=== PATIENT | female | born 1985 | race Caucasian/White ===

== ENCOUNTER → 2023-06-20 06:41 | Outpatient (REF) | payer BC, SELFPAY | LOC: MRI 3T 06:41 | PROVIDERS: ATTENDING PHYSICIAN Physician Assistant Surgical | DX: M54.12 Radiculopathy, cervical region (principal) | CPT/HCPCS: 72141 ==

== ENCOUNTER 2024-09-11 06:44 | Inpatient (IN) | payer BC, SELFPAY ==
[2024-09-11 06:49] VITALS: BMI 29.3
[2024-09-11 07:28] VITALS: BP 117/73
[2024-09-11 07:30] LABS: Hematocrit 32.9 % (37.0-47.0); Hemoglobin 12.1 g/dL (12.0-16.0); Mean Corp Hgb Conc. 36.8 g/dL (33.0-37.0); Mean Corpuscular Volume 89.2 fL (81.0-99.0); Platelet Count 181 10^3/uL (130-400); Red Cell Dist. Width 11.9 % (11.5-14.5)
[2024-09-11] MEDS: BICITRA 30 ML PO (10:45)
[2024-09-11] MEDS: ANCEF 10 IV (10:45)
[2024-09-11] MEDS: TYLENOL 975 MG PO (10:47)
[2024-09-11] MEDS: TORADOL 15 MG IV ×2 (14:12→20:03)
[2024-09-11] MEDS: PITOCIN 30 UNITS/NSS 500 ML IV (16:48)
[2024-09-11] MEDS: COLACE 100 MG PO (20:04)
[2024-09-12] MEDS: TORADOL 15 MG IV ×2 (02:12→08:18)
[2024-09-12 04:52] LABS: Hematocrit 28.7 % (37.0-47.0); Hemoglobin 10.2 g/dL (12.0-16.0); Mean Corp Hgb Conc. 35.5 g/dL (33.0-37.0); Mean Corpuscular Volume 90.8 fL (81.0-99.0); Platelet Count 155 10^3/uL (130-400); Red Cell Dist. Width 11.7 % (11.5-14.5)
[2024-09-12] MEDS: COLACE 100 MG PO ×2 (08:15→20:57)
[2024-09-12] MEDS: PRENATAL PLUS 1 TABLET PO (08:15)
--- NOTE | 2024-09-12 08:23 | W.PN.ANS.POP ---
Anesthesia Post Operative
- Anesthesia Post Op Note
Vital Signs Stable-See Nursing Note: Yes
Airway Patent: Yes
Adequate Pain Control: Yes
Change in Mental Status: No
Current Postoperative Nausea & Vomiting: No
Anesthesia Complications: No
General Anesthetic Recall: No
Unplanned Admission: No
Post Op Hydration Adequate: Yes
[2024-09-12] MEDS: TYLENOL 650 MG PO (14:46)
[2024-09-12] MEDS: MOTRIN 600 MG PO ×2 (14:46→20:57)
[2024-09-13] MEDS: ROXICODONE 5 MG PO ×2 (00:29→06:13)
[2024-09-13] MEDS: TYLENOL 650 MG PO ×3 (03:07→17:49)
[2024-09-13] MEDS: MOTRIN 600 MG PO ×3 (03:07→17:48)
[2024-09-13] MEDS: PRENATAL PLUS 1 TABLET PO (08:03)
[2024-09-13] MEDS: COLACE 100 MG PO ×2 (08:04→20:20)
[2024-09-13 11:17] LABS: Syphilis/T. pallidum Ab Reflex Negative (Negative)
[2024-09-14] MEDS: MOTRIN 600 MG PO ×2 (06:25)
[2024-09-14] MEDS: TYLENOL 650 MG PO ×2 (06:25)
[2024-09-14] MEDS: PRENATAL PLUS 1 TABLET PO (08:38)
[2024-09-14] MEDS: COLACE 100 MG PO (08:39)
--- NOTE | 2024-09-14 10:51 | W.DS.TRANS ---
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
-
Discharge Instructions:
Discharge Diagnosis/Procedures rcs
Instructions:
Stand-Alone Forms: LDRP Delivery
Changes to Home Medications: No
Discharge Medications:
DC Medications w/original date entered in [facility]
vit no.95-ferrous fumarate 28 mg-folic acid 800 mcg tablet () 1 ea PO DAILY Supplement 02/07/21
ibuprofen 600 mg tablet 600 mg PO Q6HPRN PRN cramps #90 tabs 09/14/24
oxycodone 5 mg tablet 5 mg PO Q4HPRN PRN moderate pain #6 tabs 09/14/24
Home Medication Changes
Pending Results: No
Total time spent discharging patient (in min): 20
--- NOTE | 2024-09-14 17:15 | W.DS.TRANS ---
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
-
Discharge Instructions:
Discharge Diagnosis/Procedures rcs
Instructions:
Stand-Alone Forms: LDRP Delivery
Changes to Home Medications: No
Discharge Medications:
DC Medications w/original date entered in [facility]
vit no.95-ferrous fumarate 28 mg-folic acid 800 mcg tablet () 1 ea PO DAILY Supplement 02/07/21
ibuprofen 600 mg tablet 600 mg PO Q6HPRN PRN cramps #90 tabs 09/14/24
oxycodone 5 mg tablet 5 mg PO Q4HPRN PRN moderate pain #6 tabs 09/14/24
Home Medication Changes
Pending Results: No
Total time spent discharging patient (in min): 15
== END 2024-09-14 12:50 | disposition home or self-care (01) | DRG 788 ==
LOC: LDRP 06:44
PROVIDERS: Obstetrics & Gynecology; ADMITTING PHYSICIAN Obstetrics & Gynecology
PROC: 10D00Z1 Extraction of Products of Conception, Low, Open Approach (ICD-10-PCS; 2024-09-11)
DX: O34.211 Maternal care for low transverse scar from previous cesarean delivery (principal); Z3A.39 39 weeks gestation of pregnancy; Z37.0 Single live birth; Z86.14 Personal history of Methicillin resistant Staphylococcus aureus infection; Z87.442 Personal history of urinary calculi; Z83.3 Family history of diabetes mellitus; D25.9 Leiomyoma of uterus, unspecified; O34.13 Maternal care for benign tumor of corpus uteri, third trimester
CPT/HCPCS: 36415; 85027; 86780; 86850; 86900; 86901; 87070